=== PATIENT | male | born 1960 | race Two or more races ===

== ENCOUNTER → 2016-07-31 | Outpatient (CLI) | payer OTHER ==
--- NOTE | 2016-07-31 10:55 | KCIC ---
Examination: Two views of the chest. HISTORY History of persistent cough, crackles. COMPARISON None available. FINDINGS The cardiomediastinal grossly appears unremarkable. Mild prominence of interstitial markings identified in the perihilar region. Minimal right lung base infiltrate or atelectasis. Impression: 1. Minimal right lung base infiltrates or atelectasis. Followup to resolution. 2. Mild prominent appearing bilateral interstitial lung markings in the perihilar region. Correlate for bronchitis. Electronically signed by: Ish Lainez (Jul 31, 2016 10:54:27)
== END | disposition home or self-care (01) ==
LOC: KCIC 10:29
PROVIDERS: ATTEND Nurse Practitioner
DX: R05 Cough (principal)
CPT/HCPCS: 71020